=== PATIENT | female | born 1935 | race Caucasian/White ===

== ENCOUNTER → 2020-10-08 | Outpatient (CLI) | payer MEDICARE ==
[~2020-10-08] MED LIST: ASPIR 8181 MG PO; ELIQUIS2.5 MG PO; LEVAQUIN500 MG PO; METOPROLOL TART25 MG PO; OMEGA-3 + VITA1 EACH PO; PROTONIX40 MG PO; ULTRAM50 MG PO
[2020-10-08 12:01] LABS: BUN/CREATININE RATIO 18 (0-10)
[2020-10-09 10:14] LABS: FREE THYROXINE INDEX 1.6 (1.2-4.9); THYROXINE (T4) 6.2 ug/dL (4.5-12.0)
== END ==
LOC: LAB 10:02
PROVIDERS: Internal Medicine Cardiovascular Disease
DX: I25.10 Atherosclerotic heart disease of native coronary artery without angina pectoris (principal); I48.92 Unspecified atrial flutter; I48.0 Paroxysmal atrial fibrillation; I10 Essential (primary) hypertension; R00.2 Palpitations; R06.02 Shortness of breath
CPT/HCPCS: 36415; 80053; 80061; 84436; 84479

== ENCOUNTER 2021-01-13 17:40 | Emergency (ER) | payer MEDICARE ==
[2021-01-13 19:25] LABS: HEMOGLOBIN 14.8 gm/dl (12.3-15.3); RED BLOOD COUNT 4.74 M/UL (4.00-5.10)
[2021-01-13 19:50] LABS: BUN/CREATININE RATIO 16 (0-10)
== END 2021-01-13 22:23 | disposition home or self-care (01) ==
LOC: ER1 17:40
PROVIDERS: Physician Assistant
DX: R09.81 Nasal congestion (principal); Z20.822 Contact with and (suspected) exposure to COVID-19; I48.91 Unspecified atrial fibrillation
CPT/HCPCS: 71045; 80053; 81001; 82550; 82553; 83874; 84484; 85025; 93005; 99284; U0002